=== PATIENT | male | born 1975 | race Caucasian/White ===

== ENCOUNTER 2017-01-19 16:12 | Emergency (ER) | payer BC ==
[~2017-01-19] VITALS: Ht 172.7 cm; Wt 79.0 kg
[2017-01-19 16:19] VITALS: BP 115/80; PULSE 109; RESP 15; TEMP 99.9; O2SAT 96
[2017-01-19] MEDS ORDERED: SODIUM CHLOR 0.9% 1000 ML INJ 1,000 ML IV SCH ×2 (17:18→18:45)
[2017-01-19] MEDS ORDERED: ONDANSETRON HCL 4 MG/2 ML VIAL IVP ONE (17:30)
[2017-01-19] MEDS ORDERED: KETOROLAC TROMETHAMINE 30 MG/ML (IVP) VIAL IVP ONE (17:30)
[2017-01-19] MEDS ORDERED: SODIUM CHLORIDE 0.9% FLUSH 10 ML FLUSH IV FLUSH PRN (17:30)
[2017-01-19 17:39] LABS: AUTOMATED NEUTROPHIL # 11.4 TH/MM3 (1.8-7.7); BASOPHIL # 0.3 TH/MM3 (0-0.2); BASOPHIL % 2.5 % (0.0-2.0); EOSINOPHIL % 0.1 % (0.0-4.0); HEMATOCRIT 48.1 % (39.0-51.0); LYMPH % 4.6 % (9.0-44.0); LYMPHOCYTE # 0.6 TH/MM3 (1.0-4.8); MEAN CELL VOLUME 85.1 FL (80.0-100.0); MEAN CORPUSCULAR HEMOGLOBIN 27.8 PG (27.0-34.0); MEAN CORPUSCULAR HGB CONC 32.6 % (32.0-36.0); MONO % 6.4 % (0.0-8.0); NEUT % 86.4 % (16.0-70.0); PLATELET COUNT 147 TH/MM3 (150-450); RED BLOOD COUNT 5.66 MIL/MM3 (4.50-5.90); RED CELL DISTRIBUTION WIDTH 13.2 % (11.6-17.2); WHITE BLOOD COUNT 13.1 TH/MM3 (4.0-11.0)
--- NOTE | 2017-01-19 17:40 | PD ---
HPI Chief Complaint: GI Complaint Time Seen by Provider: 16:40 Travel History International Travel<30 days: No Contact w/Intl Traveler<30days: No Traveled to known affect area: No History of Present Illness HPI Is a 41-year-old male presents emergency department complaining of nausea vomiting the setting of diagnosed UTI. He otherwise is pretty healthy. He has no medical problems. He does get up about once nights ago PE. Does notice occasional dribbling in his underwear. Does feel like he is a little bit weakened stream. Does not feel like he has any incomplete voiding. His never been diagnosed with urinary problems or prostate problems. He sexually active with his only. Denies any anal sex. Starting several days ago he started noticing frequent urination and burning with urination. He was seen at an urgent care 2 days ago when he was diagnosed with a UTI based on blood and bacteria in his urine. He was given a prescription for Bactrim. Shortly thereafter he began having vomiting. Yesterday he had vomiting and fevers. They thought he may be having a reaction to the Bactrim so they called and they started him on Cipro. He continues to feel poorly with vomiting and chills as well as having headaches. Also had some decreased bowel movements. He's never had a urinary tract infection before. History Past Medical History Medical History: Denies Significant Hx Influenza Vaccination: No Past Surgical History Surgical History: No Previous Surgery Social History Alcohol Use: No Tobacco Use: No Allergies-Medications (Allergen,Severity, Reaction): Coded Allergies: No Known Allergies (Unverified , 01/19/17) Review of Systems Except as stated in HPI: all other systems reviewed are Neg Physical Exam Narrative GENERAL: Well-appearing 41-year-old man, no acute distress. SKIN: Focused skin assessment warm/dry. CARDIOVASCULAR: Regular rate and rhythm. No murmur appreciated. RESPIRATORY: No accessory muscle use. Clear to auscultation. Breath sounds equal bilaterally. GASTROINTESTINAL: Abdomen soft, non-tender, nondistended. Hepatic and splenic margins not palpable. MUSCULOSKELETAL: No obvious deformities. No clubbing. No cyanosis. No edema. NEUROLOGICAL: Awake and alert. No obvious cranial nerve deficits. Motor grossly within normal limits. Normal speech. PSYCHIATRIC: Appropriate mood and affect; insight and judgment normal. Data Data Last Documented VS Vital Signs Date Time Temp Pulse Resp B/P Pulse Ox O2 Delivery O2 Flow Rate FiO2 6/3/17 16:30 16 01/19/17 16:19 99.9 109 115/80 96 Orders Complete Blood Count With Diff (01/19/17 17:18) Comprehensive Metabolic Panel (01/19/17 17:18) Urinalysis - C+S If Indicated (01/19/17 17:18) Iv Access Insert/Monitor (01/19/17 17:18) Ondansetron Inj (Zofran Inj) (01/19/17 17:30) Sodium Chlor 0.9% 1000 Ml Inj (Ns 1000 M (01/19/17 17:18) Sodium Chloride 0.9% Flush (Ns Flush) (01/19/17 17:30) Ketorolac Inj (Toradol Inj) (01/19/17 17:30) Ed Poc Ultrasound (01/19/17 17:18) Urine Culture (01/19/17 18:05) Labs Laboratory Tests Test 01/19/17 01/19/17 17:20 18:05 White Blood Count 13.1 TH/MM3 Red Blood Count 5.66 MIL/MM3 Hemoglobin 15.7 GM/DL Hematocrit 48.1 % Mean Corpuscular Volume 85.1 FL Mean Corpuscular Hemoglobin 27.8 PG Mean Corpuscular Hemoglobin 32.6 % Concent Red Cell Distribution Width 13.2 % Platelet Count 147 TH/MM3 Mean Platelet Volume 8.9 FL Neutrophils (%) (Auto) 86.4 % Lymphocytes (%) (Auto) 4.6 % Monocytes (%) (Auto) 6.4 % Eosinophils (%) (Auto) 0.1 % Basophils (%) (Auto) 2.5 % Neutrophils # (Auto) 11.4 TH/MM3 Lymphocytes # (Auto) 0.6 TH/MM3 Monocytes # (Auto) 0.8 TH/MM3 Eosinophils # (Auto) 0.0 TH/MM3 Basophils # (Auto) 0.3 TH/MM3 CBC Comment DIFF FINAL Differential Comment Sodium Level 139 MEQ/L Potassium Level 3.9 MEQ/L Chloride Level 105 MEQ/L Carbon Dioxide Level 25.8 MEQ/L Anion Gap 8 MEQ/L Blood Urea Nitrogen 15 MG/DL Creatinine 1.30 MG/DL Estimat Glomerular Filtration 60 ML/MIN Rate Random Glucose 122 MG/DL Calcium Level 8.7 MG/DL Total Bilirubin 0.5 MG/DL Aspartate Amino Transf 11 U/L (AST/SGOT) Alanine Aminotransferase 23 U/L (ALT/SGPT) Alkaline Phosphatase 67 U/L Total Protein 7.3 GM/DL Albumin 3.7 GM/DL Urine Collection Type CLEAN CATCH Urine Color ORANGE Urine Turbidity CLEAR Urine pH 8.0 Urine Specific [place] 1.028 Urine Protein 100 mg/dL Urine Glucose (UA) 100 mg/dL Urine Ketones 15 mg/dL Urine Occult Blood TRACE Urine Nitrite POS Urine Bilirubin NEG Urine Leukocyte Esterase TRACE Urine RBC 10-14 /hpf Urine WBC 15-19 /hpf Urine WBC Clumps FEW Urine Squamous Epithelial 0-5 /hpf Cells Urine Bacteria FEW /hpf Microscopic Urinalysis Comment CULTURE INDICATED Urine Collection Time 18:05 [facility] Medical Decision Making Medical Screen Exam Complete: Yes Emergency Medical Condition: Yes Interpretation(s) LABS: CBC is remarkable for mild leukocytosis. CMP is unremarkable. UA with positive hematuria, pyuria, clots. Differential Diagnosis UTI, renal lithiasis, prostatitis, urethritis, sepsis or infection, other Narrative Course Medical decision making 38-year-old man with fevers chills vomiting and urinary symptoms suggestive of pyelonephritis and UTI. He was started on antibiotics with his been having vomiting since. Only risk factor appears to be some evidence of BPH. He otherwise looks well. He does have some headache. I don't see any evidence of meningitis. We'll recheck urine, labs. Doesn't seem to have any lateralizing symptoms or evidence of kidney stones. I performed a bedside ultrasound which does not show any evidence of hydronephrosis. Reassess. Procedures Procedure Narrative Point of care ultrasound: Focus transabdominal ultrasounds performed by me at the bedside for the purpose of evaluating for evidence of hydronephrosis. No evidence of hydronephrosis was seen on either side. Of note, the last 2 images of the ultrasound was incorrectly labeled, and reflect the left kidney not the right kidney. Diagnosis Primary Impression: Pyelonephritis Additional Instructions: Continue ciprofloxacin as prescribed previously. Use Zofran as needed for nausea and vomiting. Drink plenty of fluids stay well-hydrated. Return to the emergency department for any worsening flank pain, vomiting, or any other new or worsening symptoms. Med/Other Pt SpecificInfo: Prescription(s) given Scripts Ondansetron Odt (Zofran Odt)4 Mg Tab4 Mg SL Q8HR PRN (Nausea/Vomiting) #15 TAB May substitute non-ODT form. Prov:Mak Hare MD 01/19/17 Disposition: 01 DISCHARGE HOME Condition: Stable Mak Hare MD Jan 19, 2017 17:40
[2017-01-19 17:47] LABS: HEMO FLAGS DIFF FINAL
[2017-01-19 17:52] LABS: CHLORIDE 105 MEQ/L (98-107); POTASSIUM 3.9 MEQ/L (3.5-5.1); SODIUM (NA) 139 MEQ/L (136-145)
[2017-01-19 17:55] LABS: ANION GAP 8 MEQ/L (5-15); BICARBONATE 25.8 MEQ/L (21.0-32.0)
[2017-01-19 17:56] LABS: BLOOD UREA NITROGEN 15 MG/DL (7-18)
[2017-01-19 17:58] LABS: ALT (GPT) 23 U/L (12-78); AST (GOT) 11 U/L (15-37)
[2017-01-19 17:59] LABS: GLOMERULAR FILTRATION RATE 60 ML/MIN (>89)
[2017-01-19 18:00] LABS: TOTAL BILIRUBIN ADULT 0.5 MG/DL (0.2-1.0)
[2017-01-19 18:01] LABS: ALKALINE PHOSPHATASE 67 U/L (45-117)
[2017-01-19 18:14] LABS: BLOOD, URINE TRACE (NEG); GLUCOSE,URINE 100 mg/dL (NEG); KETONE, URINE 15 mg/dL (NEG)
[2017-01-19 18:24] LABS: NITRITE,URINE POS (NEG)
[2017-01-19 18:36] LABS: METHOD OF COLLECTION CLEAN CATCH; URINE COLOR ORANGE (YELLW/STRAW)
[2017-01-19 18:37] LABS: BACTERIA, URINE FEW /hpf; COMMENT (UR) CULTURE INDICATED; CULTURE IF INDICATED CULTURE INDICATED; SQUAMOUS EPITHELIAL CELL URINE 0-5 /hpf (0-5); WBC, URINE 15-19 /hpf (0-5)
[2017-01-19] MEDS ORDERED: ZOFR4TAB3 SL (18:42)
[2017-01-19] MEDS ORDERED: cefTRIAXone INJ 1,000 MG in SODIUM CHLORIDE 0.9% INJ 100 ML IV ONE (18:45)
[2017-01-19 18:51] VITALS: BP 118/66; PULSE 91; RESP 16; O2SAT 95
== END 2017-01-19 19:51 | disposition home or self-care (01) ==
LOC: PHEFT 16:12
DX: N12 Tubulo-interstitial nephritis, not specified as acute or chronic (principal)
CPT/HCPCS: 80053; 81001; 85025; 87086; 96361; 96365; 96375; 99285; J0696; J1885; J2405; J7030